=== PATIENT | female | born 1985 | race Caucasian/White ===

== ENCOUNTER 2020-05-16 17:59 | Emergency (ER) | payer OTHER ==
[~2020-05-16] VITALS: Ht 160 cm; Wt 68.0 kg
[2020-05-16 18:12] VITALS: BP 156/85
--- NOTE | 2020-05-16 18:16 | NUR ---
VS STABLE. PT BACK TO ER LOBBY UNTIL BED IS AVAILABLE
--- NOTE | 2020-05-16 18:35 | NUR ---
pt to bed 11
--- NOTE | 2020-05-16 18:45 | NUR ---
PT IS A TRANSIENT STAYING IN [place] AREA MOVING AROUND VERY FREQUENTLY PER PT. DESHEVELED APPEARANCE --
--- NOTE | 2020-05-16 19:15 | NUR ---
received report from jagruti pretty. will cont care at this time. however, no full assessment note was made prior to hand off report.
--- NOTE | 2020-05-16 19:30 | NUR ---
34 y/o female c/o rt butt abcess pain x 3 days. 8/10 pain and describes it as burning. rt butt shows +yellow purulent drainage, +redness, +tenderness to touch. vss. pt thinks she got bit by a bug. pt is homeless. a&o x4. steady gait. allergies: pencillin, latex. pmh: denies.
[2020-05-16] MEDS ORDERED: ACETAMINOPHEN 325 MG TAB PO ONE (20:00)
[2020-05-16] MEDS ORDERED: cefTRIAXone 1,000 MG in LIDOCAINE MPF 1% 2.1 ML IM ONE (20:00)
[2020-05-16] MEDS ORDERED: ONDANSETRON 4 MG ODT PO ONE (20:00)
[2020-05-16] MEDS ORDERED: cefTRIAXone 1,000 MG VIAL ONE (20:14)
[2020-05-16] MEDS ORDERED: LIDOCAINE MPF 1% 5 ML ONE (20:14)
[2020-05-16 21:12] VITALS: BP 95/53
--- NOTE | 2020-05-16 21:12 | NUR ---
Patient discharged with v/s stable. Written and verbal after care instructions given and explained. Patient alert, oriented and verbalized understanding of instructions. Ambulatory with steady gait. All questions addressed prior to discharge. ID band removed. Patient advised to follow up with PMD. Rx of KEFLEX, IBUPROFEN. given. Patient educated on indication of medication including possible reaction and side effects. Opportunity to ask questions provided and answered.
--- NOTE | 2020-05-16 21:12 | NUR ---
Patient given written and verbal discharge instructions and verbalizes understanding. Given copies of tests performed during visit. Patient is awake, alert and oriented. Ambulatory with steady gait. offerED A LIST of [facility] placementS. Given list of available shelters in surrounding areas.
== END 2020-05-16 21:12 | disposition home or self-care (01) ==
LOC: MED 17:59
DX: L03.317 Cellulitis of buttock (principal); R51 Headache; Z88.0 Allergy status to penicillin; Z91.02 Food additives allergy status; Z91.040 Latex allergy status
CPT/HCPCS: 96372; 99283; J0696; J2001; Q0162